=== PATIENT | male | born 1990 | race Two or more races ===

== ENCOUNTER 2019-03-26 22:23 | Emergency (ER) | payer SELFPAY ==
[2019-03-26 22:32] VITALS: BP 149/89
[2019-03-27] MEDS ORDERED: BESIFLOXACIN HCL 0.6% OPH SUSP 5 ML BOTTLE OD ONE (00:16)
[2019-03-27] MEDS ORDERED: HYDROCODONE/ACETAMINOPHEN 5-325 MG (6 TAB/ER DISP) PO PRN (00:20)
--- NOTE | 2019-03-27 00:23 | ER Document Report ---
ED Foreign Body - General Chief Complaint: Foreign Body in Eye Stated Complaint: FOREIGN BODY IN EYE Time Seen by Provider: 03/26/19 22:55 Primary Care Provider: ALBERTO RUFFIN MD [ACTIVE STAFF] - 03/28/19 TRAVEL OUTSIDE OF THE [place] IN LAST 30 DAYS: No - HPI Notes: Patient is a 28-year-old male who presents to the emergency department for a foreign body in his right eye. Patient states that yesterday he was helping his brother remove a window and while hammering a piece of metal flew into his right eye. Patient states that gradually over the past day he has continued to have pain and can see a dot in his visual field where the foreign body is located. Patient denies visual changes. Patient denies drainage from the eye. Past Medical History - General Information source: Patient - Social History Smoking Status: Unknown if Ever Smoked Lives with: Alone Family History: Reviewed & Not Pertinent - Medical History Medical History: Negative Review of Systems - Review of Systems Constitutional: No symptoms reported EENT: See HPI Cardiovascular: No symptoms reported Respiratory: No symptoms reported Gastrointestinal: No symptoms reported Genitourinary: No symptoms reported Male Genitourinary: No symptoms reported Musculoskeletal: No symptoms reported Skin: No symptoms reported Hematologic/Lymphatic: No symptoms reported Neurological/Psychological: No symptoms reported Physical Exam - Vital signs Vitals: Temp Pulse Resp BP Pulse Ox 97.7 F 65 18 149/89 H 99 03/26/19 22:29 03/26/19 22:29 03/26/19 22:29 03/26/19 22:29 03/26/19 22:29 Interpretation: Hypertensive - Notes Notes: GENERAL: Well-appearing, well-nourished and in no acute distress. HEAD: Atraumatic, normocephalic. EYES: Pupils equal round and reactive to light, extra ocular movements intact, strabismus noted (pt. states this is his normal), sclera anicteric, conjunctiva are normal. Foreign body noted on the left lower inferior aspect of the cornea. No hyphema. Fluorscene uptake noted at the site of the foreign body but not in any other part of the eye. ENT: Moist mucous membranes. NECK: Normal range of motion, supple without lymphadenopathy or JVD. LUNGS: Breath sounds clear to auscultation bilaterally and equal. No wheezes rales or rhonchi. HEART: Regular rate and rhythm without murmurs, rubs or gallops. ABDOMEN: Soft, nontender, normoactive bowel sounds. No guarding, no rebound. No masses appreciated. EXTREMITIES: Normal range of motion, no pitting or edema. No clubbing or cyanosis. NEUROLOGICAL: Cranial nerves II through XII grossly intact. Normal speech, normal gait. PSYCH: Normal mood, normal affect. SKIN: Warm, Dry, normal turgor, no rashes or lesions noted. Course - Re-evaluation Re-evalutation: 03/27/19 Tetracaine drops placed into the right eye. During exam it was noted that patient did have strabismus. Patient states that this is normal as well is a known stigmatism. Once anesthetic relieved discomfort the foreign body was attempted to be removed from the left lower inferior aspect of the cornea. A small amount of the foreign body was removed from the surface but part of the foreign body appeared to be further embedded into the eye. Patient will need strict follow-up with safety and health consultant to have remaining foreign body removed. With the use of [employer] silversmith apprentice I explained the importance of follow-up with ophthalmology this upcoming Thursday. A referral was placed and the information was giving for Dr. Ruffin to the patient. Patient was prescribed pain medication as well as antibiotic drops. Patient informed to return to the emergency department if he develops changes in his vision, significant redness and swelling around his eye, discharge, or any other concerning signs or symptoms. Patient verbalized understanding and denies questions. - Vital Signs Vital signs: Temp Pulse Resp BP Pulse Ox 97.7 F 65 18 149/89 H 99 03/26/19 22:29 03/26/19 22:29 03/26/19 22:29 03/26/19 22:29 03/26/19 22:29 Discharge - Discharge Clinical Impression: Pain, eye, right Foreign body of right eye Qualifiers: Encounter type: initial encounter Qualified Code(s): T15.91XA - Foreign body on external eye, part unspecified, right eye, initial encounter Condition: Stable Disposition: HOME, SELF-CARE Additional Instructions: Usted fue atendido en el departamento de emergencias para cuerpos extraos en el serafin derecho. Pudimos eliminar samy pequea cantidad del cuerpo extrao, anna marie parece que hay un metal adicional que est ms profundo dentro del serafin. Necesitar un seguimiento con oftalmologa el lunes para que se le quite rahul medicamento. Por favor, tome antonio gotas de antibiticos segn lo prescrito. Use samy gota en jackman serafin derecho warren veces al da julianne samy semana. Tambin se le prescribe Acular, que es un analgsico para el serafin. Se prescribe manuelito samy gota en el serafin derecho cuatro veces al da. Por favor, vuelva al departamento de emergencias para cambiar la visin o empeorar los sntomas. You were seen in the emergency department for foreign body to the right eye. We were able to remove a small amount of the foreign body but it appears that there is additional metal that is deeper within the eye. You will need follow-up with ophthalmology on Thursday to have this removed. Please take your antibiotic drops as prescribed. Use 1 drop in your right eye 3 times per day for 7 days. You are also being prescribed Acular which is a pain medication for your eye. It is prescribed 1 drop in the right eye 4 times per day. Please return to the emergency department for or any other concerning signs or symptoms. Foreign Body You may have had a particle of dust or other foreign body in your eye Today, either your foreign body was found and removed or no foreign body was found. Your eye may be irritated until complete healing occurs. The usual treatment is to place antibiotics in the eye. In addition, pain medication may be necessary. A follow-up visit may be scheduled to assure healing. Do not drive or operate machinery until you have the full use of both your eyes. Healing of the area takes one to three days. If eye pain becomes severe, or if there is purulent drainage, eye swelling, or decreasing vision, call the doctor or return at once for re-evaluation. Prescriptions: Ketorolac Tromethamine [Acular] 1 drop OD QID #5 ml Referrals: ALBERTO RUFFIN MD [ACTIVE STAFF] - 03/28/19 Print Language: Welsh
[2019-03-27] MEDS ORDERED: BESIFLOXACIN HCL 0.6% OPH SUSP 5 ML BOTTLE ONE (00:58)
== END 2019-03-27 01:33 | disposition home or self-care (01) ==
LOC: ER 22:23
DX: T15.91XA Foreign body on external eye, part unspecified, right eye, initial encounter (principal); H57.11 Ocular pain, right eye; W22.8XXA Striking against or struck by other objects, initial encounter
CPT/HCPCS: 99283